=== PATIENT | male | born 1970 | race Caucasian/White ===

== ENCOUNTER 2016-07-12 10:14 | Emergency (ER) | payer OTHER ==
[2016-07-12 10:55] LABS: BASO % 0.6 % (0.2-1.2); EOS # 0.3 10_X3_uL (0.0-0.5); EOS % 4.2 % (0.8-7.0); GRAN # 4.1 10_X3_uL (1.8-5.4); GRAN % 63.8 % (34.0-67.9); HEMATOCRIT 50.7 % (40-51); HEMOGLOBIN 17.8 g/dL (13.7-17.5); LYMPH # 1.6 10_X3_uL (1.3-3.6); LYMPH % 25.3 % (21.8-53.1); MEAN CORPUSCULAR HEMOGLOBIN 31.6 pg (27.0-33.0); MEAN CORPUSCULAR HGB CONC 35.1 g/dL (32.0-36.0); MEAN CORPUSCULAR VOLUME 90.1 fL (79-92); MEAN PLATELET VOLUME 9.7 fl (7.5-11.5); MONO # 0.4 10_X3_uL (0.3-0.8); MONO % 6.1 % (5.3-12.2); PLATELET COUNT 242 x10_3/uL (163-337); RED BLOOD COUNT 5.63 x10_6/uL (4.6-6.1); RED CELL DISTRIBUTION WIDTH 13.9 % (11.6-14.4); WHITE BLOOD COUNT 6.4 x10_3/uL (4.2-9.1)
[2016-07-12 11:06] LABS: PARTIAL THROMBOPLASTIN TIME 24.7 SECONDS (21.3-29.3); PROTHROMBIN TIME (PATIENT) 10.4 SECONDS (9.9-11.1)
[2016-07-12 11:12] LABS: BLOOD UREA NITROGEN 9 mg/dL (7-18); CALCIUM 9.3 mg/dL (8.7-10.7); CARBON DIOXIDE 26 mmol/L (21-32); CREATINE KINASE 75 U/L (35-232); CREATININE 0.9 mg/dL (0.6-1.3); GLUCOSE,RANDOM 87 mg/dL (70-99); POTASSIUM 4.9 mmol/L (3.5-5.1); SODIUM 140 mmol/L (136-145)
== END 2016-07-12 12:38 | disposition home or self-care (01) ==
LOC: ER 10:14
PROVIDERS: Emergency Medicine
DX: R51 Headache (principal); I69.392 Facial weakness following cerebral infarction; I69.351 Hemiplegia and hemiparesis following cerebral infarction affecting right dominant side; Z85.038 Personal history of other malignant neoplasm of large intestine; Z85.72 Personal history of non-Hodgkin lymphomas; Z79.82 Long term (current) use of aspirin; Z79.899 Other long term (current) drug therapy; Z88.5 Allergy status to narcotic agent
CPT/HCPCS: 36415; 70450; 80048; 82550; 82553; 85025; 85610; 85730; 93005; 96374; 96375; 99070; 99284-25